=== PATIENT | female | born 2000 | race Caucasian/White ===

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

== ENCOUNTER 2021-01-15 15:31 | Emergency (ER) | payer OTHER ==
[~2021-01-15] VITALS: Ht 165.1 cm; Wt 83.9 kg
[~2021-01-15 15:31] MED LIST changes: +NITROFURANTOIN100 MG PO
== END 2021-01-15 19:06 | disposition short-term general hospital (02) ==
LOC: ED 15:31
PROC: 4A0D7LZ Measurement of Urinary Volume, Via Natural or Artificial Opening (ICD-10-PCS; principal; 2021-01-15)
DX: M54.5 Low back pain (principal); R20.0 Anesthesia of skin; Z20.822 Contact with and (suspected) exposure to COVID-19; K21.9 Gastro-esophageal reflux disease without esophagitis; J45.909 Unspecified asthma, uncomplicated; Z88.8 Allergy status to other drugs, medicaments and biological substances; Z88.2 Allergy status to sulfonamides
CPT/HCPCS: 51798; 81001; 84703; 99284-25; A9270; C9803; U0003